=== PATIENT | male | born 1975 | race Two or more races ===

== ENCOUNTER 2023-04-13 12:09 | Emergency (ER) | payer OTHER ==
[~2023-04-13] VITALS: Ht 185.4 cm; Wt 122.5 kg
[2023-04-13] MEDS ORDERED: METFORMIN HCL500 M3 PO (15:20)
== END 2023-04-13 15:52 | disposition home or self-care (01) ==
LOC: ER 12:09
PROVIDERS: General Practice
DX: E11.9 Type 2 diabetes mellitus without complications (principal); Z79.84 Long term (current) use of oral hypoglycemic drugs

== ENCOUNTER 2023-04-17 16:22 | Emergency (ER) | payer OTHER ==
[~2023-04-17] VITALS: Ht 190.5 cm; Wt 143.3 kg
[~2023-04-17 16:22] MED LIST: METFORMIN HCL500 M3 PO
[2023-04-17] MEDS ORDERED: GLUMETZA1000 MG PO (16:39)
== END 2023-04-17 19:02 | disposition home or self-care (01) ==
LOC: ER 16:23
DX: M25.512 Pain in left shoulder (principal)